=== PATIENT | male | born 1955 | race African-American/Black ===

== ENCOUNTER 2021-07-12 00:01 | Inpatient (IN) ==
[2021-07-12] MEDS ORDERED: ALBUTEROL INHALER 18 GM INH PRN (02:01)
[2021-07-12 02:21] LABS: ABG Base Excess 0.6 MMOL/L (-2.5-2.5); ABG Oxygen Saturation 98.5 % (95-100); ABG PCO2 33.2 MM HG (35-48); ABG PH 7.464 (7.35-7.45); ABG TCO2 21.4 MMOL/L (23-27)
[2021-07-12] MEDS ORDERED: hydrALAZINE 20 MG/1 ML VIAL IV PRN (02:34)
[2021-07-12] MEDS ORDERED: DOCUSATE SODIUM 100 MG CAPSULE PO PRN (02:34)
[2021-07-12] MEDS ORDERED: ZALEPLON 5 MG CAPSULE PO PRN (02:34)
[2021-07-12] MEDS ORDERED: diphenhydrAMINE CAP 25 MG CAPSULE PO PRN (02:34)
[2021-07-12] MEDS ORDERED: ONDANSETRON 4 MG/2 ML VIAL IV PRN (02:34)
[2021-07-12] MEDS ORDERED: ACETAMINOPHEN 325 MG TABLET PO PRN (02:34)
[2021-07-12] MEDS ORDERED: GLUCAGON 1 MG VIAL IM PRN (02:34)
[2021-07-12] MEDS ORDERED: guaiFENesin/DM ER 600-30 MG TABLET PO PRN (02:34)
[2021-07-12] MEDS ORDERED: NICOTINE 21 MG/24 HR PATCH TRANSDERM PRN (02:34)
[2021-07-12] MEDS ORDERED: DEXTROSE 50% 25 GM/50 ML VIAL IV PRN (02:34)
[2021-07-12] MEDS ORDERED: MORPHINE 2 MG/1 ML SYRINGE IV PRN (02:34)
[2021-07-12] MEDS: AZITHROMYCIN INJ 500 MG in SODIUM CHLORIDE 0.9% 250 ML IV SCH (02:45)
[2021-07-12] MEDS: ALBUTEROL INHALER 18 GM INH SCH ×6 (02:46→22:08)
[2021-07-12] MEDS ORDERED: HEPARIN 5,000 UNIT/1 ML VIAL SUBCUT SCH (03:00)
[2021-07-12 03:16] LABS: Alanine Aminotransferase 27 U/L (13-56); Albumin 3.1 G/DL (3.4-5.0); Alkaline Phosphatase 88 U/L (45-117); Aspartate Amino Transferase 82 U/L (0-37); Basophils % 0.1 % (0.0-0.8); Bilirubin,Direct < 0.050 MG/DL (0.0-0.20); Bilirubin,Indirect 0.3 MG/DL (0.0-1.0); Bilirubin,Total < 0.39 MG/DL (0.20-1.00); Blood Urea Nitrogen 14 MG/DL (7-18); Calcium 8.2 MG/DL (8.5-10.1); Carbon Dioxide 24 MMOL/L (21-32); Estimated Glom Filtration Rate 77 ML/MIN; Glucose 106 MG/DL (74-106); Hematocrit 32.7 VOL% (35.7-47.0); Hemoglobin 10.4 GM/DL (12.0-16.0); Immature Granulocytes % 0.9 %; Immature Granulocytes Absolute 0.08 #; Lymphocytes # 0.6 10*3/uL (1.4-4.0); Lymphocytes % 6.4 % (21.3-54.2); Mean Corpuscular HGB Conc 31.8 GM/DL (32-36); Mean Corpuscular Volume 72.8 FL (87-102); Mean Platelet Volume 8.9 FL (9.6-12.0); Monocytes % 5.4 % (1.7-12.7); Neutrophils % 87.2 % (38.7-73.9); Osmolality,Calculated 270.1 MOS/KG (273-304); Platelet Count 321 T/CUMM (130-400); Potassium 3.7 MMOL/L (3.5-5.1); Red Blood Count 4.49 MC/CUMM (3.8-5.5); Red Cell Distribution Width 15.9 % (9.3-17.3); Sodium 135 MMOL/L (136-145); Total Protein 7.1 G/DL (6.4-8.2); White Blood Count 8.8 T/CUMM (4-12)
[2021-07-12 03:27] LABS: INR 1.1; PT Patient Result 12.3 SECS (10.5-12.0); Partial Thromboplastin Time 33.6 SECS (23.9-33.8)
[2021-07-12] MEDS: cefTRIAXone 1,000 MG in SODIUM CHLORIDE 0.9% 100 ML IV SCH (03:28)
[2021-07-12] MEDS ORDERED: ENOXAPARIN 60 MG/0.6 ML SYRINGE SUBCUT STA (03:34)
[2021-07-12] MEDS ORDERED: REMDESIVIR 200 MG in SODIUM CHLORIDE 0.9% 210 ML IV ONE (06:30)
[2021-07-12] MEDS: PANTOPRAZOLE 40 MG TABLET PO SCH (09:45)
[2021-07-12 14:57] LABS: Calcium 7.7 MG/DL (8.5-10.1); Osmolality,Calculated 273.8 MOS/KG (273-304); Potassium 3.9 MMOL/L (3.5-5.1)
[2021-07-12] MEDS: ASPIRIN EC 81 MG TABLET PO SCH (18:16)
[2021-07-12] MEDS: DEXAMETHASONE 4 MG TABLET PO SCH (18:17)
[2021-07-12] MEDS: carvediloL 3.125 MG TABLET PO SCH (18:17)
[2021-07-12] MEDS: ENOXAPARIN 60 MG/0.6 ML SYRINGE SUBCUT SCH (22:08)
[2021-07-13] MEDS: AZITHROMYCIN INJ 500 MG in SODIUM CHLORIDE 0.9% 250 ML IV SCH (01:35)
[2021-07-13] MEDS: cefTRIAXone 1,000 MG in SODIUM CHLORIDE 0.9% 100 ML IV SCH (02:43)
[2021-07-13] MEDS: ALBUTEROL INHALER 18 GM INH SCH ×6 (02:44→21:15)
[2021-07-13 06:27] LABS: Basophils % 0.1 % (0.0-0.8); Hematocrit 31.2 VOL% (35.7-47.0); Hemoglobin 9.9 GM/DL (12.0-16.0); Immature Granulocytes % 0.7 %; Immature Granulocytes Absolute 0.05 #; Lymphocytes # 0.5 10*3/uL (1.4-4.0); Lymphocytes % 7.1 % (21.3-54.2); Mean Corpuscular HGB Conc 31.7 GM/DL (32-36); Mean Corpuscular Volume 73.4 FL (87-102); Mean Platelet Volume 9.1 FL (9.6-12.0); Monocytes % 2.8 % (1.7-12.7); Neutrophils % 89.3 % (38.7-73.9); Platelet Count 278 T/CUMM (130-400); Red Blood Count 4.25 MC/CUMM (3.8-5.5); Red Cell Distribution Width 15.9 % (9.3-17.3); White Blood Count 6.7 T/CUMM (4-12)
[2021-07-13 07:12] LABS: Calcium 8.4 MG/DL (8.5-10.1); Ferritin 2545.4 ng/ml (8-252); Osmolality,Calculated 270.2 MOS/KG (273-304); Potassium 4.2 MMOL/L (3.5-5.1)
[2021-07-13] MEDS: ZINC GLUCONATE 50 MG TABLET PO SCH (09:17)
[2021-07-13] MEDS: ENOXAPARIN 60 MG/0.6 ML SYRINGE SUBCUT SCH ×2 (09:17→20:35)
[2021-07-13] MEDS: carvediloL 3.125 MG TABLET PO SCH ×2 (09:18→18:05)
[2021-07-13] MEDS: LOSARTAN 25 MG TABLET PO SCH (09:18)
[2021-07-13] MEDS: CHOLECALCIFEROL 1,000 UNIT TABLET PO SCH (09:18)
[2021-07-13] MEDS: FUROSEMIDE 40 MG TABLET PO SCH (09:18)
[2021-07-13] MEDS: ASCORBIC ACID 500 MG TABLET PO SCH ×2 (09:18→20:35)
[2021-07-13] MEDS: SPIRONOLACTONE 25 MG TABLET PO SCH (09:18)
[2021-07-13] MEDS: DEXAMETHASONE 4 MG TABLET PO SCH (09:18)
[2021-07-13] MEDS: REMDESIVIR 100 MG in SODIUM CHLORIDE 0.9% 100 ML IV SCH (09:19)
[2021-07-13] MEDS: ASPIRIN EC 81 MG TABLET PO SCH (10:35)
[2021-07-13] MEDS: BUDESONIDE/FORMOTEROL 160-4.5 INHALER 6 GM INH SCH ×2 (10:35→20:35)
[2021-07-13] MEDS: PANTOPRAZOLE 40 MG TABLET PO SCH (10:35)
[2021-07-13] MEDS ORDERED: TUBERCULIN SKIN TEST 0.1 ML SYRINGE INTRADERM ONE (16:00)
[2021-07-14] MEDS: ALBUTEROL INHALER 18 GM INH SCH ×5 (02:25→17:29)
[2021-07-14 05:44] LABS: Basophils % 0.2 % (0.0-0.8); Hematocrit 31.6 VOL% (42.0-52.0); Hemoglobin 10.2 GM/DL (14.0-18.0); Immature Granulocytes % 0.6 %; Immature Granulocytes Absolute 0.03 #; Lymphocytes # 0.6 10*3/uL (1.4-4.0); Lymphocytes % 11.7 % (21.2-54.2); Mean Corpuscular HGB Conc 32.3 GM/DL (32-36); Mean Corpuscular Volume 72.6 FL (87-102); Mean Platelet Volume 9.5 FL (9.6-12.0); Monocytes % 10.5 % (1.7-12.7); Platelet Count 292 T/CUMM (130-400); Red Blood Count 4.35 MC/CUMM (3.8-5.5); Red Cell Distribution Width 15.6 % (9.3-17.3)
[2021-07-14 06:11] LABS: Calcium 8.4 MG/DL (8.5-10.1); Ferritin 1841.8 ng/ml (26-388); Osmolality,Calculated 271.1 MOS/KG (273-304); Potassium 3.8 MMOL/L (3.5-5.1)
[2021-07-14 06:21] LABS: Alanine Aminotransferase 16 U/L (16-61); Albumin 2.4 G/DL (3.4-5.0); Alkaline Phosphatase 71 U/L (45-117); Aspartate Amino Transferase 27 U/L (0-37); Bilirubin,Direct < 0.050 MG/DL (0.0-0.20); Bilirubin,Indirect 0.3 MG/DL (0.0-1.0); Bilirubin,Total < 0.39 MG/DL (0.20-1.00); Total Protein 6.2 G/DL (6.4-8.2)
[2021-07-14] MEDS: CHOLECALCIFEROL 1,000 UNIT TABLET PO SCH (09:36)
[2021-07-14] MEDS: DEXAMETHASONE 4 MG TABLET PO SCH (09:36)
[2021-07-14] MEDS: ASCORBIC ACID 500 MG TABLET PO SCH (09:36)
[2021-07-14] MEDS: PANTOPRAZOLE 40 MG TABLET PO SCH (09:37)
[2021-07-14] MEDS: LOSARTAN 25 MG TABLET PO SCH (09:37)
[2021-07-14] MEDS: carvediloL 3.125 MG TABLET PO SCH ×2 (09:37→17:29)
[2021-07-14] MEDS: ASPIRIN EC 81 MG TABLET PO SCH (09:37)
[2021-07-14] MEDS: SPIRONOLACTONE 25 MG TABLET PO SCH (09:37)
[2021-07-14] MEDS: ZINC GLUCONATE 50 MG TABLET PO SCH (09:37)
[2021-07-14] MEDS: ENOXAPARIN 60 MG/0.6 ML SYRINGE SUBCUT SCH (09:38)
[2021-07-14] MEDS: FUROSEMIDE 40 MG TABLET PO SCH (09:38)
[2021-07-14] MEDS: BUDESONIDE/FORMOTEROL 160-4.5 INHALER 6 GM INH SCH (09:41)
[2021-07-14] MEDS: cefTRIAXone 1,000 MG in SODIUM CHLORIDE 0.9% 100 ML IV SCH (10:31)
[2021-07-14] MEDS: REMDESIVIR 100 MG in SODIUM CHLORIDE 0.9% 100 ML IV SCH (11:14)
[2021-07-14] MEDS: AZITHROMYCIN INJ 500 MG in SODIUM CHLORIDE 0.9% 250 ML IV SCH (12:30)
[2021-07-14 17:39] VITALS: BP 100/52
[2021-07-14] MEDS ORDERED: HEPARIN LOCK FLUSH 500 UNIT/5 ML SYRINGE IV ONE (17:50)
== END 2021-07-14 18:03 | disposition home health service (06) | DRG 177 ==
LOC: N.ED 00:01 → N.EDINP 02:35 → SUATTDRO 02:35 → N.2E 22:54
PROVIDERS: ADMIT Emergency Medicine; ATTEND Hospitalist